=== PATIENT | male | born 1940 | race Caucasian/White ===

== ENCOUNTER 2018-02-16 08:38 | Inpatient (IN) | payer MEDICARE, MEDICAID ==
[2018-02-16] VITALS (17 sets, daily range): BP systolic 154–191; BP diastolic 83–97
[~2018-02-16] VITALS: Ht 170.2 cm
[~2018-02-16 08:38] MED LIST: LOSARTAN POTAS100 MG ORAL; ZOLPIDEM TARTRAT5 MG ORAL; ceFAZolin sod 1 GM in D5W 55 ML IVPB ONE; ceFAZolin sod 1 GM in D5W 55 ML IVPB SCH
[2018-02-16] MEDS ORDERED: BYSTOLIC5 MG ORAL (09:41)
[2018-02-16] MEDS ORDERED: SENSIPAR30 MG ORAL (09:41)
[2018-02-16] MEDS ORDERED: ZETIA10 MG ORAL (09:41)
[2018-02-16] MEDS ORDERED: TAMSULOSIN HCL0.4 MG ORAL (09:41)
[2018-02-16] MEDS ORDERED: DIOVAN160 MG ORAL (09:41)
[2018-02-16] MEDS ORDERED: NEXIUM40 MG ORAL (09:41)
[2018-02-16] MEDS ORDERED: fentaNYL 100 mcg/2 mL IV ONE (09:56)
[2018-02-16] MEDS ORDERED: Midazolam 2mg/2ml Inj ONE (09:57)
[2018-02-16] MEDS ORDERED: Propofol 200mg/20ml IV ONE (10:00)
[2018-02-16] MEDS ORDERED: Lidocaine 1% MPF 10mg/ml 5ml ONE (10:01)
--- NOTE | 2018-02-16 10:41 | Pre-Procedure Note/Attestation ---
Pre-Procedure Note/Attestation Complete Prior to Procedure Planned Procedure: left Procedure Narrative: laparoscopic radical vs partial nephrectomy Indications for Procedure Pre-Operative Diagnosis: left renal mass Attestation I attest that I discussed the nature of the procedure; its benefits; risks and complications; and alternatives (and the risks and benefits of such alternatives ), prior to the procedure, with the patient (or the patient's legal assisted sales representative). I attest that, if there was a reasonable possibility of needing a blood transfusion, the patient (or the patient's legal assisted sales representative) was given the [facility] standardized written summary, pursuant to the [place] Blood Safety Act ([place] Health and Safety Code # 1645, as amended). I attest that I re-evaluated the patient just prior to the surgery and that there has been no change in the patient's H&P, except as documented below: Peter Chavez MD Feb 16, 2018 10:41
[2018-02-16] MEDS ORDERED: NS Irrig 1000ml ONE (11:00)
[2018-02-16] MEDS ORDERED: Sterile Water Irrig 1000ml IRRIG ONE (11:00)
[2018-02-16] MEDS ORDERED: LR 1000ml ONE (11:00)
[2018-02-16] MEDS ORDERED: Succinylcholine 20mg/ml 10ml vial ONE (11:00)
[2018-02-16] MEDS ORDERED: Neostigmine 1mg/ml 10ml Inj ONE (11:00)
[2018-02-16] MEDS ORDERED: Zemuron 50mg/5ml Inj IV ONE (11:08)
[2018-02-16] MEDS ORDERED: Bupivacaine 0.5% Inj 30 ml vial INJ ONE (11:08)
[2018-02-16] MEDS ORDERED: Surgicel 4in x 8in TOPIC ONE (11:56)
[2018-02-16] MEDS ORDERED: LR 1000ml 1,000 ML IVLG SCH (11:57)
--- NOTE | 2018-02-16 11:57 | Anethesia Preoperative Eval ---
Anesthesia Pre-op PMH/ROS General Date of Evaluation: Feb 16, 2018 Time of Evaluation: 10:52 Anesthesiologist: Monica ASA Score: ASA 2 Mallampati Score Class I : Soft palate, uvula, fauces, pillars visible Class II: Soft palate, uvula, fauces visible Class III: Soft palate, base of uvula visible Class IV: Only hard plate visible Mallampati Classification: Class II Surgeon: Kathy Diagnosis: L renal mass Surgical Procedure: Laparoscopic nephrectomy Anesthesia History: none Allergies: Coded Allergies: CLOPIDOGREL (Verified Adverse Reaction, Intermediate, 02/16/18) RASHES Medications: see eMAR Past Medical History Cardiovascular: Reports: HTN; Denies: CAD, [place], valve dz, arrhythmia, other Pulmonary: Denies: asthma, COPD, ELAINE, other Gastrointestinal/Genitourinary: Reports: GERD Neurologic/Psychiatric: Denies: dementia, CVA, depression/anxiety, TIA, other Endocrine: Denies: DM, hypothyroidism, steroids, other HEENT: Denies: cataract (L), cataract (R), glaucoma, [place] (L), [place] (R), other Hematology/Immune: Denies: anemia, DVT, bleeding disorder, other Musculoskeletal/Integumentary: Reports: OA; Denies: RA, DJD, DDD, edema, other PMH Narrative: as above PSxH Narrative: Appendectomy Anesthesia Pre-op Phys. Exam Physician Exam Last Vital Signs Date Time Temp Pulse Resp B/P (MAP) Pulse Ox O2 Delivery O2 Flow Rate FiO2 02/16/18 09:32 Room Air 02/16/18 09:18 98.0 64 18 171/88 (115) 99 98.0 Constitutional: NAD Neurologic: CN 2-12 intact Cardiovascular: RRR, no M/R/G Respiratory: CTA Airway Exam Mallampati Score: Class II MO: limited Neck: stiff ROM: limited Teeth: missing Dentures: upper, lower Anesthesia Pre-op A/P Labs see chart Studies Pre-op Studies: EKG - SR Risk Assessment & Plan Assessment: ASA 2 Plan: GA with ETT Status Change Before Surgery: No Pre-Antibiotics Drug: Ancef 1gr. Given Within 1 Hr of Incision: Yes Time Given: 11:20 Rolly Anderson MD Feb 16, 2018 11:57
[2018-02-16] MEDS ORDERED: Morphine Sulfate 2mg/ml Inj IVP PRN (12:00)
[2018-02-16] MEDS ORDERED: DiphenhydrAMINE 50mg/ml Inj IVP PRN (12:00)
[2018-02-16] MEDS ORDERED: Glycopyrrolate 0.2mg/ml 1ml Vial ONE (12:02)
--- NOTE | 2018-02-16 12:14 | Brief Operative Note ---
Immediate Post Operative Note Operative Note Pre-op Diagnosis: left renal mass Procedure: left laparoscopic nephrectomy Post-op Diagnosis: same Post-op Diagnosis: same as pre-op Surgeon: isabel chavez Welfare Supervisor: neeraj domingo Anesthesia: general Specimen: yes Complications: none Condition: stable Fluids: 1000 Estimated Blood Loss: minimal Implant(s) used?: No Peter Chavez MD Feb 16, 2018 12:14
--- NOTE | 2018-02-16 12:39 | Immediate Post-Op Evaluation ---
Immediate Post-Op Evalulation Immediate Post-Op Evalulation Procedure: L Laparoscopic hand assysted nephrectomy Date of Evaluation: Feb 16, 2018 Time of Evaluation: 12:36 IV Fluids: 1200 Blood Products: none Estimated Blood Loss: 100 Urinary Output: 150 Blood Pressure Systolic: 170 Blood Pressure Diastolic: 56 Pulse Rate: 69 Respiratory Rate: 20 O2 Sat by Pulse Oximetry: 98 Temperature (Fahrenheit): 97.6 Pain Score (1-10): 2 Nausea: No Vomiting: No Complications none Patient Status: awake, patent, extubated, none Hydration Status: adequate Rolly Anderson MD Feb 16, 2018 12:39
[2018-02-16] MEDS: fentaNYL 100 mcg/2 mL IV PRN ×4 (12:45→13:55)
[2018-02-16 14:04] LABS: BASOPHILS % (AUTO) 0.8 % (0.0-2.0); HEMATOCRIT 45.3 % (42.0-52.0); HEMOGLOBIN 15.2 G/DL (14.2-18.0); LYMPHOCYTES % (AUTO) 8.8 % (20.0-45.0); MEAN CORPUSCULAR VOLUME 87 FL (80-99); MONOCYTES % (AUTO) 7.5 % (1.0-10.0); NEUTROPHILS % (AUTO) 81.9 % (45.0-75.0); PLATELET COUNT 225 K/UL (150-450); RED BLOOD COUNT 5.21 M/UL (4.70-6.10); RED CELL DISTRIBUTION WIDTH 11.6 % (11.6-14.8); WHITE BLOOD COUNT 13.7 K/UL (4.8-10.8)
[2018-02-16 14:11] LABS: ANION GAP 10 mmol/L (5-15); BLOOD UREA NITROGEN 16 mg/dL (7-18); CALCIUM 9.2 MG/DL (8.5-10.1); CARBON DIOXIDE 28 MMOL/L (21-32); CHLORIDE 104 MMOL/L (98-107); CREATININE 1.4 MG/DL (0.55-1.30); SODIUM 142 MMOL/L (136-145)
[2018-02-16] MEDS ORDERED: Norco 5mg/325mg tab ORAL PRN (16:00)
[2018-02-16] MEDS: D5 1/2NS w/KCl 20mEq 1,000 ML IV SCH (16:46)
[2018-02-16] MEDS: Irbesartan 150mg tablet ORAL SCH (16:46)
[2018-02-16] MEDS: Docusate 100mg cap ORAL SCH (17:52)
[2018-02-16] MEDS: ceFAZolin sod 1 GM in D5W 110 ML IV SCH (19:59)
[2018-02-16] MEDS: HYDROmorphone 1mg/ml Carpuject IVP PRN (21:02)
[2018-02-17] VITALS: BP 135/74
--- NOTE | 2018-02-17 00:30 | Operative Note - Dictated ---
DATE OF OPERATION: 02/16/2018 PREOPERATIVE DIAGNOSIS: Left renal mass. POSTOPERATIVE DIAGNOSIS: Left renal mass. OPERATION: Left laparoscopic radical nephrectomy. OPERATED BY: Peter Chavez M.D. ANESTHESIA: General. FINDINGS: Left renal mass. VEHICLE RETURN ASSOCIATE: Papito Pascual M.D. INDICATIONS FOR SURGERY: The patient had a left renal mass approximately [address] scan. Mass primarily inside the kidney. Treatment options were explained to the patient including all potential complications. He signed a consent. OPERATIVE PROCEDURE: He was brought to the operating room, placed in a left lateral decubital position, prepped and draped in the standard fashion. Under general anesthesia, a subxiphoid midline incision approximately 7 cm was done. Peritoneum was entered and hand port was placed in the standard position. Two additional 12 mm trocars were placed and Dr. Pascual performed lysis of adhesions mobilizing transverse and descending colon exposing the left renal fossa. After that I dissected the ureter and also renal pedicle and the kidney itself. Evaluation of the tumor mass in the upper pole posterior side of the kidney revealed no gross masses intraparenchymal and close to the renal sinus. It was difficult and also not guaranteed cancer control with partial nephrectomy. So, I performed a radical nephrectomy, transecting the renal pedicle with Endo-CHARY and ureter with Endo-CHARY and all additional attachments of the kidney was removed using sharp and blunt dissection with electrocautery and additional clips. After the removal of the kidney, hemostasis was done. There was some bleeding. Surgicel and FloSeal was placed to the . Renal pedicle was clear and no evidence of bleeding. Procedure was terminated and we replaced the bowel in normal position and closed the wound in multiple layers. The fascia was closed with #0 Vicryl sutures. Clarissa for the skin. The patient tolerated the procedure well. No complications. Peter Chavez M.D. DR: ROSA JOB#: [id number] CC:
[2018-02-17] MEDS: ceFAZolin sod 1 GM in D5W 110 ML IV SCH (02:24)
[2018-02-17] MEDS: D5 1/2NS w/KCl 20mEq 1,000 ML IV SCH ×3 (02:24→22:50)
[2018-02-17 04:00] VITALS: BP 138/77
--- NOTE | 2018-02-17 04:30 | Operative Note - Dictated ---
DATE OF OPERATION: 02/16/2018 NOTE: POOR AUDIO SURGEON: Papito Pascual M.D. LAUNCH CHECK OUT: Peter Chavez M.D. PREOPERATIVE DIAGNOSIS: Left kidney cancer. POSTOPERATIVE DIAGNOSES: 1. Left kidney cancer. 2. Intraabdominal adhesions. PROCEDURE PERFORMED: Laparoscopic lysis of adhesions. INDICATIONS FOR PROCEDURE: The patient is a 77-year-old male with a left renal tumor. He was elected to undergo laparoscopic left nephrectomy. Upon entering the intraabdominal cavity, the operating surgeon, Dr. Peter Chavez, left colon and spleen. left kidney. I was requested by Dr. Peter Chavez to perform lysis of adhesions laparoscopic nephrectomy. INTRAOPERATIVE FINDINGS: As above. OPERATIVE PROCEDURE: The patient was identified, brought to the operating room and positioned in the left lateral decubitus. General endotracheal anesthesia was induced. Time-out was performed. The abdomen was prepped and draped in the usual sterile fashion. Dr. Chavez placed for hand-assisted laparoscopic nephrectomy . He also put trocar in the left abdomen and then he used the 30-degree scope to visualize the content of the intraabdominal cavity. At that time, he found and findings. We placed additional 5 mm and in the left abdomen and at that moment . Using sharp dissection, I the bowel and divided the adhesions between the left colon and anterior abdominal wall. It required partial mobilization of the left colon. After that, I divided adhesions between transverse colon and spleen. completion of this to the left kidney was seen. The rest of procedure was performed by Dr. Peter Chavez and he will dictate . Papito Pascual M.D. DR: Odalys JOB#: [id number] CC:
[2018-02-17] MEDS: HYDROmorphone 1mg/ml Carpuject IVP PRN ×3 (06:33→16:05)
[2018-02-17 07:54] LABS: BASOPHILS % (AUTO) 0.6 % (0.0-2.0); EOSINOPHILS % (AUTO) 0.8 % (0.0-3.0); HEMATOCRIT 36.7 % (42.0-52.0); HEMOGLOBIN 12.4 G/DL (14.2-18.0); LYMPHOCYTES % (AUTO) 11.6 % (20.0-45.0); MEAN CORPUSCULAR VOLUME 86 FL (80-99); MONOCYTES % (AUTO) 14.2 % (1.0-10.0); NEUTROPHILS % (AUTO) 72.8 % (45.0-75.0); PLATELET COUNT 176 K/UL (150-450); RED BLOOD COUNT 4.25 M/UL (4.70-6.10); RED CELL DISTRIBUTION WIDTH 11.7 % (11.6-14.8); WHITE BLOOD COUNT 8.6 K/UL (4.8-10.8)
[2018-02-17 08:00] VITALS: BP 116/61
[2018-02-17 08:02] LABS: ANION GAP 6 mmol/L (5-15); BLOOD UREA NITROGEN 17 mg/dL (7-18); CALCIUM 8.6 MG/DL (8.5-10.1); CARBON DIOXIDE 25 MMOL/L (21-32); CHLORIDE 104 MMOL/L (98-107); POTASSIUM 4.5 MMOL/L (3.5-5.1); SODIUM 135 MMOL/L (136-145)
[2018-02-17] MEDS ORDERED: Sodium Chloride 500ML 500 ML IV ONE (10:00)
[2018-02-17] MEDS: Irbesartan 150mg tablet ORAL SCH (10:10)
[2018-02-17] MEDS: Docusate 100mg cap ORAL SCH ×2 (10:10→18:20)
--- NOTE | 2018-02-17 11:27 | 48 Hour Post Anesthesia Eval ---
Post Anesthesia Evaluation Procedure: L Laparoscopic hand assysted nephrectomy Date of Evaluation: Feb 17, 2018 Time of Evaluation: 11:25 Blood Pressure Systolic: 116 0: 58 Pulse Rate: 72 Respiratory Rate: 20 Temperature (Fahrenheit): 97.6 O2 Sat by Pulse Oximetry: 98 Airway: patent Nausea: No Vomiting: No Pain Intensity: 3 Hydration Status: adequate Cardiopulmonary Status: stable Mental Status/LOC: patient returned to baseline Follow-up Care/Observations: n/a Post-Anesthesia Complications: none Follow-up care needed: N/A Rolly Anderson MD Feb 17, 2018 11:27
[2018-02-17 12:00] VITALS: BP 131/61
[2018-02-17 16:00] VITALS: BP 128/67
--- NOTE | 2018-02-17 17:00 | Consultation ---
DATE OF CONSULTATION: 02/17/2018 INTERNAL MEDICINE CONSULTATION/HISTORY AND PHYSICAL CONSULTING PHYSICIAN: Joon Jones M.D. HISTORY OF PRESENT ILLNESS: This is a 77-year-old male who has undergone left nephrectomy for left renal mass. At this point, he seen postoperative day #1. He is comfortable. Denies any complaints. PAST MEDICAL HISTORY: Notable for hypertension, hyperlipidemia, CAD with stent as well as BPH. PAST SURGICAL HISTORY: Cataract surgery as well as appendectomy. HOME MEDICATIONS: Nexium, Oxytrol, Avodart, Zetia, Bystolic and Diovan. ALLERGIES: To Plavix. REVIEW OF SYSTEMS: The patient denies any headaches, hematemesis, melena, or hematochezia. PHYSICAL EXAMINATION: GENERAL: A 77-year-old male. VITAL SIGNS: Blood pressure 150/80, heart rate 84, respiration 18, and he is afebrile. HEENT: Unremarkable. LUNGS: Clear, breath sounds bilaterally. ABDOMEN: Soft. EXTREMITIES: There is no edema. NEUROLOGIC: Nonfocal. LABORATORY AND DIAGNOSTIC DATA: Preoperative lab testing is unremarkable except for evidence of UTI, sensitive to nitrofurantoin. CBC this morning, hemoglobin 12.4, white count 8.6, and platelet count is normal. Chemistries are notable for creatinine of 2. IMPRESSION: 1. Postoperative day #1 status post left nephrectomy. 2. History of CAD status post angioplasty. 3. Hypertension. 4. BPH. 5. Hyperlipidemia. DISCUSSION: At this time, the patient is doing well postoperative day #1. He has had a mild increase in creatinine and this is expected after nephrectomy. I will continue his home medications and follow carefully. Postoperative care per Dr. Chavez. Joon Jones M.D. DR: MIRA JOB#: [id number] CC:
[2018-02-17 20:00] VITALS: BP 133/70
[2018-02-18] VITALS: BP 135/65
[2018-02-18 04:00] VITALS: BP 128/73
[2018-02-18 08:00] VITALS: BP 152/81
--- NOTE | 2018-02-18 08:40 | Pulmonology Progress Note ---
Assessment/Plan Assessment/Plan IMPRESSION: 1. Postoperative day #2 status post left nephrectomy. 2. History of CAD status post angioplasty. 3. Hypertension. 4. BPH. 5. Hyperlipidemia. DISCUSSION: At this time, the patient is doing well postoperative day #2. He has had a mild increase in creatinine and this is expected after nephrectomy. I will continue his home medications and follow carefully. Postoperative care per Dr. Chavez. On clear liquids; consider advancing diet Check labs today and in AM Subjective Interval Events: Better; afebrile Constitutional: Reports: no symptoms HEENT: Repors: no symptoms Respiratory: Reports: no symptoms Cardiovascular: Reports: no symptoms Gastrointestinal/Abdominal: Reports: no symptoms Genitourinary: Reports: no symptoms Allergies: Coded Allergies: CLOPIDOGREL (Verified Adverse Reaction, Intermediate, 02/16/18) RASHES Objective Last 24 Hour Vital Signs Date Time Temp Pulse Resp B/P (MAP) Pulse Ox O2 Delivery O2 Flow Rate FiO2 02/18/18 04:00 100.2 74 22 128/73 (91) 95 100.2 02/18/18 00:00 99.3 65 24 135/65 (88) 93 99.3 02/17/18 21:00 Room Air 02/17/18 20:00 99.2 64 20 133/70 (91) 94 99.2 02/17/18 16:35 97.1 02/17/18 16:05 97.1 02/17/18 16:00 97.9 62 16 128/67 (87) 97 97.9 02/17/18 12:00 97.1 60 18 131/61 (84) 96 97.1 02/17/18 11:27 207.7 72 20 98 02/17/18 10:11 98.3 02/17/18 10:10 116/61 Intake and Output 02/17/18 02/18/18 19:00 07:00 Intake Total 1600 ml 600 ml Balance 1600 ml 600 ml Intake Oral 1500 ml 600 ml IV Total 100 ml # Voids 1 7 General Appearance: no acute distress HEENT: normocephalic Respiratory/Chest: chest wall non-tender, lungs clear Cardiovascular: normal peripheral pulses, normal rate Current Medications Medications (Trade) Dose Ordered Sig/Aleja Route PRN Reason Start Time Stop Time Status Last Admin Dose Admin Acetaminophen (Tylenol) 650 mg Q6H PRN ORAL Mild Pain (Pain Scale 1-3) 02/16/18 16:00 03/18/18 15:59 Acetaminophen/ Hydrocodone Bitart (Central 5/325) 1 tab Q4H PRN ORAL Moderate Pain (Pain Scale 4-6) 02/16/18 16:00 02/23/18 15:59 Dextrose/ Electrolytes 1,000 ml @ 100 mls/hr Q10H IV 02/16/18 17:00 03/18/18 16:59 02/17/18 22:50 Docusate Sodium (Colace) 100 mg TWICE A DAY ORAL 02/16/18 18:00 03/18/18 17:59 02/17/18 18:20 Hydromorphone HCl (Dilaudid) 1 mg Q3H PRN IVP Severe Pain (Pain Scale 7-10) 02/16/18 12:15 02/23/18 12:14 02/17/18 16:05 Irbesartan (Avapro) 150 mg DAILY ORAL 02/16/18 17:00 03/18/18 16:59 02/17/18 10:10 Nebivolol (Bystolic) 5 mg DAILY ORAL 02/16/18 17:00 03/18/18 16:59 02/17/18 10:18 Ondansetron HCl (Zofran) 4 mg Q6H PRN IVP Nausea & Vomiting 02/16/18 16:00 03/18/18 15:59 Temazepam (Restoril) 7.5 mg HSPRN PRN ORAL Insomnia 02/16/18 21:00 02/23/18 20:59 02/17/18 21:46 Joon Jones MD Feb 18, 2018 08:40
[2018-02-18] MEDS: Docusate 100mg cap ORAL SCH ×2 (08:49→17:20)
[2018-02-18] MEDS: Irbesartan 150mg tablet ORAL SCH (08:50)
[2018-02-18] MEDS: D5 1/2NS w/KCl 20mEq 1,000 ML IV SCH (09:19)
[2018-02-18 09:39] LABS: BASOPHILS % (AUTO) 0.3 % (0.0-2.0); EOSINOPHILS % (AUTO) 0.7 % (0.0-3.0); HEMATOCRIT 36.5 % (42.0-52.0); HEMOGLOBIN 12.3 G/DL (14.2-18.0); LYMPHOCYTES % (AUTO) 9.1 % (20.0-45.0); MEAN CORPUSCULAR VOLUME 86 FL (80-99); NEUTROPHILS % (AUTO) 77.8 % (45.0-75.0); PLATELET COUNT 162 K/UL (150-450); RED BLOOD COUNT 4.25 M/UL (4.70-6.10); RED CELL DISTRIBUTION WIDTH 11.4 % (11.6-14.8); WHITE BLOOD COUNT 10.3 K/UL (4.8-10.8)
[2018-02-18 09:52] LABS: ANION GAP 7 mmol/L (5-15); BLOOD UREA NITROGEN 17 mg/dL (7-18); CALCIUM 9.8 MG/DL (8.5-10.1); CARBON DIOXIDE 26 MMOL/L (21-32); CHLORIDE 103 MMOL/L (98-107); CREATININE 2.2 MG/DL (0.55-1.30); POTASSIUM 4.4 MMOL/L (3.5-5.1); SODIUM 136 MMOL/L (136-145)
[2018-02-18 12:00] VITALS: BP 150/74
[2018-02-18 16:00] VITALS: BP 134/77
[2018-02-18 20:00] VITALS: BP 124/81
[2018-02-19] VITALS (7 sets, daily range): BP systolic 154–175; BP diastolic 76–87
[2018-02-19 06:24] LABS: BASOPHILS % (AUTO) 0.7 % (0.0-2.0); EOSINOPHILS % (AUTO) 2.8 % (0.0-3.0); HEMATOCRIT 35.8 % (42.0-52.0); HEMOGLOBIN 12.2 G/DL (14.2-18.0); LYMPHOCYTES % (AUTO) 15.1 % (20.0-45.0); MEAN CORPUSCULAR VOLUME 85 FL (80-99); MONOCYTES % (AUTO) 11.5 % (1.0-10.0); PLATELET COUNT 186 K/UL (150-450); RED CELL DISTRIBUTION WIDTH 11.1 % (11.6-14.8); WHITE BLOOD COUNT 8.9 K/UL (4.8-10.8)
[2018-02-19 06:29] LABS: ANION GAP 10 mmol/L (5-15); BLOOD UREA NITROGEN 20 mg/dL (7-18); CALCIUM 9.9 MG/DL (8.5-10.1); CARBON DIOXIDE 24 MMOL/L (21-32); CHLORIDE 102 MMOL/L (98-107); CREATININE 2.1 MG/DL (0.55-1.30); POTASSIUM 4.1 MMOL/L (3.5-5.1); SODIUM 136 MMOL/L (136-145)
[2018-02-19] MEDS: Irbesartan 150mg tablet ORAL SCH (08:47)
[2018-02-19] MEDS: Docusate 100mg cap ORAL SCH ×2 (08:47→17:18)
[2018-02-19] MEDS ORDERED: Metoclopramide 10mg/2ml Inj IVP PRN (10:30)
[2018-02-20] VITALS: BP 153/73
[2018-02-20 04:00] VITALS: BP 145/70
[2018-02-20 08:00] VITALS: BP 148/79
[2018-02-20] MEDS ORDERED: Milk of Magnesia 30ml Ud ORAL SCH (09:00)
[2018-02-20] MEDS: Irbesartan 150mg tablet ORAL SCH (09:01)
[2018-02-20] MEDS: Docusate 100mg cap ORAL SCH (09:02)
--- NOTE | 2018-02-20 09:24 | Pulmonology Progress Note ---
Assessment/Plan Assessment/Plan IMPRESSION: 1. Postoperative day #3 status post left nephrectomy. 2. History of CAD status post angioplasty. 3. Hypertension. 4. BPH. 5. Hyperlipidemia. DISCUSSION: At this time, the patient is doing well postoperative day #3. He has had a mild increase in creatinine and this is expected after nephrectomy. I will continue his home medications and follow carefully. Postoperative care per Dr. Chavez. On clear liquids; consider advancing diet Labs OK This note represents visit of 02/19/18 Subjective Interval Events: No change Constitutional: Reports: no symptoms HEENT: Repors: no symptoms Respiratory: Reports: no symptoms Cardiovascular: Reports: no symptoms Gastrointestinal/Abdominal: Reports: no symptoms Genitourinary: Reports: no symptoms Allergies: Coded Allergies: CLOPIDOGREL (Verified Adverse Reaction, Intermediate, 02/16/18) RASHES Objective Last 24 Hour Vital Signs Date Time Temp Pulse Resp B/P (MAP) Pulse Ox O2 Delivery O2 Flow Rate FiO2 02/20/18 09:01 148/79 02/20/18 09:00 Room Air 02/20/18 08:00 97.6 54 20 148/79 (102) 96 97.6 02/20/18 04:00 97.7 52 17 145/70 (95) 94 97.7 02/20/18 00:00 97.6 56 18 153/73 (99) 96 97.6 02/19/18 21:00 Room Air 02/19/18 20:35 158/83 02/19/18 20:00 97.2 54 18 158/83 (108) 98 97.2 02/19/18 16:00 97.6 61 18 155/80 (105) 99 97.6 02/19/18 13:10 159/76 02/19/18 12:00 97.8 60 18 159/76 (103) 98 97.8 Intake and Output 02/19/18 02/20/18 19:00 07:00 Intake Total 500 ml 320 ml Output Total 700 ml 375 ml Balance -200 ml -55 ml Intake Oral 500 ml 320 ml Output Urine Total 700 ml 375 ml # Voids 3 1 # Bowel Movements 1 General Appearance: no acute distress HEENT: normocephalic Respiratory/Chest: chest wall non-tender, lungs clear Cardiovascular: normal peripheral pulses, normal rate Abdomen: normal bowel sounds Current Medications Medications (Trade) Dose Ordered Sig/Aleja Route PRN Reason Start Time Stop Time Status Last Admin Dose Admin Acetaminophen (Tylenol) 650 mg Q6H PRN ORAL Mild Pain (Pain Scale 1-3) 02/16/18 16:00 03/18/18 15:59 Acetaminophen/ Hydrocodone Bitart (Coolin 5/325) 1 tab Q4H PRN ORAL Moderate Pain (Pain Scale 4-6) 02/16/18 16:00 02/23/18 15:59 Bisacodyl (Dulcolax) 10 mg ONCE RECTAL 02/20/18 08:45 02/20/18 09:45 02/20/18 09:02 Clonidine HCl (Catapres Tab) 0.1 mg Q6H PRN ORAL SBP >150 02/19/18 12:45 03/21/18 12:44 02/19/18 20:35 Docusate Sodium (Colace) 100 mg TWICE A DAY ORAL 02/16/18 18:00 03/18/18 17:59 02/20/18 09:02 Famotidine (Pepcid) 20 mg BID ORAL 02/19/18 11:30 03/22/18 08:59 02/20/18 09:02 Hydromorphone HCl (Dilaudid) 1 mg Q3H PRN IVP Severe Pain (Pain Scale 7-10) 02/16/18 12:15 02/23/18 12:14 02/17/18 16:05 Irbesartan (Avapro) 150 mg DAILY ORAL 02/16/18 17:00 03/18/18 16:59 02/20/18 09:01 Magnesium Hydroxide (Mom) 30 ml ONCE ORAL 02/20/18 09:00 02/20/18 10:00 02/20/18 09:01 Metoclopramide HCl (Reglan) 10 mg Q4H PRN IVP Nausea & Vomiting 02/19/18 10:30 03/21/18 10:29 Nebivolol (Bystolic) 5 mg DAILY ORAL 02/16/18 17:00 03/18/18 16:59 02/20/18 09:01 Ondansetron HCl (Zofran) 4 mg Q6H PRN IVP Nausea & Vomiting 02/16/18 16:00 03/18/18 15:59 Sodium Chloride 1,000 ml @ 75 mls/hr [id number] IV 02/18/18 11:00 03/20/18 10:59 02/18/18 11:22 Temazepam (Restoril) 7.5 mg HSPRN PRN ORAL Insomnia 02/16/18 21:00 02/23/18 20:59 02/17/18 21:46 Joon Jones MD Feb 20, 2018 09:24
[2018-02-20 12:00] VITALS: BP 144/70
[2018-02-20 16:00] VITALS: BP 137/78
--- NOTE | 2018-02-21 07:57 | Discharge Summary ---
Discharge Summary Hospital Course Date of Admission Feb 16, 2018 at 08:38 Date of Discharge Feb 20, 2018 at 16:05 Admitting Diagnosis left renal mass Reason for Hospitalization: Elective surgery DIANDRA Chapa is a 77 year old male who was admitted on Feb 16, 2018 at 08:38 for Left renal mkass. The patient had a left renal mass approximately [address] scan. Mass primarily was inside the kidney. Treatment options were explained to the patient including all potential complications. He opted for surgery, signed consent and was admitted for eelctive surgery. Consultations Dr. Jones IM Procedures s/p 02/[address] Chavez Left laparoscopic radical nephrectomy. s/p 02/[address] Pascual Laparoscopic lysis of adhesions. Hospital Course status post surgery course of recovery uneventful pain management addressed , pain controlled dressing clean dry and intact initially IV fluids started on clear liquid diet and advanced as tolerated ambulated voided bowel regimen instituted renal parameters and electrolytes were closely monitored , nephrotoxins were avoided home medications resumed surgeon clear for discharge home with home health services outpatient follow-up with a surgeon as advised FINAL DIAGNOSIS left renal mass s/p left laparoscopic radical nephrectomy with lysis of adhesion history of coronary artery disease, status post angioplasty Hypertension Hyperlipidemia BPH Discharge Condition Upon Discharge: stable Discharge Disposition Patient was discharged to Home () Discharge Instructions Discharge Instructions Special Instructions I have been assigned to complete a D/C Summary on this account. I was not involved in the patient management Mary Connelly NP Feb 21, 2018 07:57
== END 2018-02-20 16:05 | disposition home or self-care (01) | DRG 661 ==
LOC: SDSOVERFLO 08:38 → 3E 14:29
PROC: 0TT14ZZ Resection of Left Kidney, Percutaneous Endoscopic Approach (ICD-10-PCS; principal; 2018-02-16 10:45)
PROC: 0DNW4ZZ Release Peritoneum, Percutaneous Endoscopic Approach (ICD-10-PCS; principal; 2018-02-16 10:45)
DX: N28.89 Other specified disorders of kidney and ureter (principal); I25.10 Atherosclerotic heart disease of native coronary artery without angina pectoris; I10 Essential (primary) hypertension; E78.5 Hyperlipidemia, unspecified; N40.0 Benign prostatic hyperplasia without lower urinary tract symptoms; Z95.5 Presence of coronary angioplasty implant and graft; Z88.8 Allergy status to other drugs, medicaments and biological substances; K66.0 Peritoneal adhesions (postprocedural) (postinfection)
CPT/HCPCS: 36415; 80048; 85025; 86850; 86900; 86901; 87081; 94003; 94150; J2250; J2710